=== PATIENT | female | born 1930 | race Caucasian/White ===

== ENCOUNTER 2018-05-20 02:05 | Observation (INO) ==
--- NOTE | 2018-05-20 02:23 | Emergency Department Note ---
ED Disposition Clinical Impression: Atrial fibrillation with rapid ventricular response Disposition: Admitted As Inpatient Condition on Discharge: Good Referrals: Tye Loomis MD [Primary Care Provider] - - Critical Care Critical Care Time: No Attestation: On , the high probability of a clinically significant, sudden or life threatening deterioration of the following system(s) required my full and direct attention, intervention and personal management. The time I documented below is in addition to time spent performing reported procedures but includes the following listed in this critical care notation. Medical Decision Making - Medical Records Medical records reviewed: Yes: I reviewed the patient's medical records. - Kulwinder Inquiry Pt receiving controlled substance: No Vital Signs: 05/20/18 02:06 05/20/18 02:31 05/20/18 02:52 Temperature 98.5 F Temperature Source Oral Pulse Rate [Right Brachial] 148 H 125 H 105 H Respiratory Rate 15 Blood Pressure [Right Arm] 148/88 H 125/64 126/71 Blood Pressure Mean [Right Arm] 108 84 89 02 Sat by Pulse Oximetry 98 98 98 Oxygen Delivery Method Room Air - Lab Data Lab results reviewed: Yes: I reviewed the patient's lab results. Lab Results 05/20/18 02:15: WBC 4.9, RBC 4.26, Hgb 13.2, Hct 39.6, MCV 92.8, MCH 31.0, MCHC 33.4, RDW 14.7, Plt Count 172, MPV 8.0, Neut % (Auto) 49.8, Lymph % (Auto) 38.2, [place] % (Auto) 8.4, Eos % (Auto) 2.6, Baso % (Auto) 1.1, Neut # (Auto) 2.5, Lymph # (Auto) 1.9, [place] # (Auto) 0.4, Eos # (Auto) 0.1, Baso # (Auto) 0.1 05/20/18 02:15: Sodium 136, Potassium 3.5, Chloride 100, Carbon Dioxide 26, Anion Gap 13.5, BUN 13, Creatinine 0.80, Estimated Creat Clear 40, Estimated GFR 68, Est GFR ( Amer) 82, Glucose 101, Calcium 9.6, Troponin I < 0.02 05/20/18 02:15: TSH 0.21 L D, Thyroxine (T4) 13.7 H Result diagrams: 05/20/18 02:15 03/04/19 02:15 Orders (Tests/Meds): ED MEDICATIONS Generic Name Dose Route Start Last Admin Trade Name Freq PRN Reason Stop Dose Admin Diltiazem HCl 125 mg 05/20/18 02:30 05/20/18 02:35 Cardizem 125mg/25ml Vial IV 06/19/18 02:29 Not Given DIRECTED PAWAN Protocol Sodium Chloride 1,000 mls @ 999 mls/hr 05/20/18 02:30 05/20/18 02:31 Sod Chlor 0.9% 1000ml Bag IV 05/20/18 03:30 999 mls/hr .Q1H1M PAWAN Administration Diltiazem HCl 100 mg/ Sodium 100 mls @ 5 mls/hr 05/20/18 02:39 05/20/18 02:32 Chloride IV 06/19/18 02:38 5 mls/hr .Q20H PAWAN Administration Protocol Sodium Chloride 10 ml 05/20/18 02:16 Saline Flush 10ml Syringe IV 06/19/18 02:15 NEEDED PRN Maintain IV Site Discontinued Medications Generic Name Dose Route Start Last Admin Trade Name Freq PRN Reason Stop Dose Admin Aspirin 324 mg 05/20/18 02:17 05/20/18 02:30 Aspirin 81mg Chewable Tablet PO 05/20/18 02:18 324 mg ONCE ONE Administration Diltiazem HCl 10 mg 05/20/18 02:23 05/20/18 02:30 Cardizem 25mg/5ml Vial IV 05/20/18 02:24 10 mg ONCE ONE Administration ORDERS Category Date Time Status XR chest portable Stat Exams 05/20/18 02:41 Taken ECG Request by /Nse Stat Y 05/20/18 02:16 Ordered - Radiology Data #1 Image(s): Chest Image Reviewed: Yes I reviewed the patient's radiology image Preliminary Findings: Abnormal (hiatial hernia ) - ECG Data Tracing #1 Arrhythmias present: afib Ischemic changes: non-specific ST-T wave changes ECG compared to prior tracings: this ECG reveals significant changes (last ekg sb) - Physician Consults Physician Consulted: david Reason -: Admission Arrhythmia/Palpitations HPI - General Chief Complaint: Arrhythmia/Palpitations Stated Complaint: fast heart rate Time Seen by Provider: 05/20/18 02:10 Mode of Arrival: Wheelchair Source of Information: Patient, Relative, Medical Record Limitations: No Limitations - History of Present Illness HPI narrative: awoke with af ib with fast hr with hx of a fib was to have surg at own today complaint: rapid heart beat Onset (ago): hour(s) Duration: constant Severity: moderate Context: occurred during rest Arrhythmia history: atrial fibrillation, on anti-coagulants Associated symptoms: denies other symptoms - Related Data Home Medications Medication Instructions Recorded Confirmed Alendronate Sodium [Fosamax 70mg 70 mg PO WEEKLY 04/01/18 05/20/18 Tablet] Apixaban [Eliquis] 5 mg PO BID 04/01/18 05/20/18 Atorvastatin Calcium [Atorvastatin 40 mg PO DAILY 04/01/18 05/20/18 40mg Tab] Hydrocodone/Acetaminophen 1 each PO BID 04/01/18 05/20/18 [Hydrocodon-Acetaminoph 7.5-325] Levothyroxine Sodium 125 mcg PO DAILY 04/01/18 05/20/18 [Levothyroxine 125mcg (0.125mg) Tab] Tolterodine Tartrate [Detrol LA] 2 mg PO DAILY 04/01/18 05/20/18 Allergies Allergy/AdvReac Type Severity Reaction Status Date / Time sulfamethoxazole Allergy Intermediate I-RASH Verified 08/19/17 18:22 [SULFAMETHOXAZOLE] dolasetron [DOLASETRON] Allergy Unknown HIGH BP Verified 08/19/17 18:22 trimethoprim [TRIMETHOPRIM] Allergy Unknown I-RASH Verified 08/19/17 18:22 [facility] History - Hepatitis A Screen Drug use history?: No High risk sexual behaviors?: No History of sexually transmitted infection?: No Currently employed?: No Childcare worker?: No Do you have indoor plumbing?: Yes Do you have electricity?: Yes Attestation statement:: This patient has been screened for Hepatitis A risk factors. I have reviewed the patient's past medical history: Yes Medical History: Reports:: Cancer (left breast lumpectomy), Depression, Gastroesophageal Reflux Disease(GERD), Hyperlipidemia, Hypertension Denies:: Diabetes Mellitus Type 1, Diabetes Mellitus Type 2, MRSA, Seizures Laterality Cases: Bilateral: Total Knee Replacement Other Surgeries: Yes: Cholecystectomy Amputation: No Comment: Elbow, left sentinel node bx - Social History Alcohol Intake: never Occupational Status: retired, disabled Housing: house - Psychiatric History Expresses thoughts of harming self/others: None Suicide Plan Description: No Plan Pschychiatric History:: Reports:: Depression ROS Obtained: Yes All systems reviewed & no additional complaints - Constitutional Constitutional: Denies fever(s) - Eyes Eyes: Denies change in vision - ENT Ears, Nose, Mouth, and Throat: Denies headache(s) - Cardiovascular Cardiovascular: Denies chest pain, Denies dyspnea, Reports rapid heart rate - Respiratory Respiratory: No cough - Gastrointestinal Gastrointestingal: Denies: diarrhea - Genitourinary Female Genitourinary: Denies hematuria - Musculoskeletal Musculoskeletal: Denies joint pain - Integumentary/Breasts Skin/Breast: Denies rash - Neurologic Neurologic: Denies seizure-like activity Physical Exam - General General appearance: in no apparent distress - Head Head exam: normocephalic - Eye Eye exam: Present: PERRL, EOMI. Absent: scleral icterus - ENT ENT exam: Present: mucous membranes dry - Neck Neck exam: Present: trachea midline - Respiratory Respiratory exam: Present: normal lung sounds bilaterally. Absent: respiratory distress - Cardiovascular Cardiovascular exam: Present: irregular rhythm, systolic murmur, +S4 - Abdominal Exam Abdominal exam: Present: soft - Extremities Exam Extremities exam: Absent: calf tenderness - Neurological Exam Neurological exam: Present: alert, oriented X3, CN II-XII intact - Psychiatric Psychiatric exam: Present: normal affect - Skin Skin exam: Absent: rash
[2018-05-20 02:26] LABS: Basophils # 0.1 K/mm3 (0-0.2); Basophils % 1.1 % (0.1-2.0); Eosinophils # 0.1 K/mm3 (0.0-0.4); Eosinophils % 2.6 % (0.1-12.0); Hematocrit 39.6 % (37.0-47.0); Hemoglobin 13.2 g/dL (12.2-16.2); Lymphocytes # 1.9 K/mm3 (0.7-4.5); Lymphocytes % 38.2 % (10-50); Mean Corpuscular HGB Conc 33.4 g/dL (31.8-35.4); Mean Corpuscular Volume 92.8 fl (81-99); Monocytes # 0.4 K/mm3 (0.1-1.0); Monocytes % 8.4 % (1.7-9.3); Neutrophils # 2.5 K/mm3 (1.8-7.8); Neutrophils % 49.8 % (37.0-80.0); Platelet Count 172 K/mm3 (142-424); Red Blood Count 4.26 M/mm3 (4.20-5.40); Red Cell Distribution Width 14.7 % (11.5-17.5); White Blood Count 4.9 K/mm3 (4.8-10.8)
[2018-05-20 02:42] LABS: Anion Gap 13.5 mEq/L (5-15); Blood Urea Nitrogen 13 mg/dL (7-18); Calcium 9.6 mg/dL (8.5-10.1); Carbon Dioxide 26 mmol/L (21.0-32.0); Chloride 100 mmol/L (98-107); Glucose 101 mg/dL (74-106); Potassium 3.5 mmoL/L (3.5-5.1); Sodium 136 mmol/L (136-145)
[2018-05-20 02:58] LABS: Thyroid Stimulating Hormone 0.21 uIU/ml (0.358-3.740)
--- NOTE | 2018-05-20 07:24 | Pharmacy Consult Notes ---
[facility] Pharmacy VTE Monitoring - Patient Demographics Admission date: 05/20/18 Report Date: 05/20/18 Time: 07:24 Allergies/Adverse Reactions: Patient Allergies sulfamethoxazole [SULFAMETHOXAZOLE] Allergy (Intermediate, Verified 08/19/17 18:22) I-RASH dolasetron [DOLASETRON] Allergy (Unknown, Verified 08/19/17 18:22) HIGH BP trimethoprim [TRIMETHOPRIM] Allergy (Unknown, Verified 08/19/17 18:22) I-RASH Height: 1.63 m Weight: 62.171 kg Patient Problems: Current Active Problems Atrial fibrillation with rapid ventricular response (Acute) - VTE Risk Labs: VTE Related Lab Results Hgb 13.2 g/dL (12.2-16.2) 05/20/18 02:15 Hct 39.6 % (37.0-47.0) 05/20/18 02:15 Plt Count 172 K/mm3 (142-424) 05/20/18 02:15 BUN 13 mg/dL (7-18) 05/20/18 02:15 Creatinine 0.80 mg/dL (0.55-1.02) 05/20/18 02:15 Estimated Creat Clear 40 mL/min (50-200) 05/20/18 02:15 VTE Score: 4 VTE Risk Level: Low Risk - Prophylaxis VTE Prophylaxis Ordered?: Yes Types of VTE Prophylaxis: TEDS Knee High Location of Applied Device: Bilateral Lower Extremeties - VTE Diagnosis Confirmed Treatment or plan recommended: Continue Current Treatment
--- NOTE | 2018-05-20 09:07 | History & Physical Report ---
*Admission Date: 05/20/18 <Rosalia Hernandez 05/20/18 09:34> *Chief complaint: Atrial fibrillation <Rosalia Hernandez 05/20/18 09:34> *History of present illness: Ms. Dyer is an 87-year-old female with a history of atrial fibrillation, esophageal reflux, breast cancer, mild cognitive impairment, hypothyroidism, heart murmur, glaucoma, and postoperative pulmonary embolism who was brought into [facility] emergency room by her daughter, Linda, for evaluation. The patient states that she was to have hiatal hernia surgery today and she was preparing for this yesterday by changing her bed linens last evening. She finally went to bed about 1 AM and was unable to go to sleep due to a funny feeling. She figured out that her heart was running away and called her daughter who brought her to the emergency room. She denies having any chest pain and shortness of breath. She denies any other upper respiratory signs and symptoms and was not nauseated. In the emergency room she was found to be in atrial fibrillation with a rapid ventricular response. She was started on a Cardizem drip and admitted. This a.m. she is sitting up in the bed eating her breakfast and appears quite comfortable. She has had little sleep and arrived in her room about 4 AM. She denies chest pain and shortness of breath. <Rosalia Hernandez 05/20/18 09:34> [facility] History Medical History: Reports:: Arrhythmia, Atrial Fibrillation, Cancer (left breast lumpectomy), Depression, Gastroesophageal Reflux Disease(GERD), Hyperlipidemia, Hypertension, Pulmonary Embolism Denies:: Diabetes Mellitus Type 1, Diabetes Mellitus Type 2, MRSA, Seizures <Rosalia Hernandez 05/20/18 09:34> *Have you ever received a pneumonia vaccine?: No <Rosalia Hernandez 05/20/18 09:34> *Have you received a flu vaccine this season?: Yes <Rosalia Hernandez 05/20/18 09:34> Other Medical History: Reports: Chemotherapy, Glaucoma, Hypothyroidism <Rosalia Hernandez 05/20/18 09:34> Laterality Cases: Left: Breast Biopsy, Lumpectomy, Right: Arthroscopy Shoulder, Bilateral: Total Knee Replacement <Rosalia Hernandez - 03/04/19 09:34> Other Surgeries: Yes: Cholecystectomy <Rosalia Hernandez 05/20/18 09:34> Amputation: No <Rosalia Hernandez 05/20/18 09:34> Comment: Rectal fissure repair; left breast lumpectomy; left foot surgery for hammertoe x4; <Rosalia Hernandez 05/20/18 09:34> - *Social History Educational Level: Completed College <Rosalia Hernandez 05/20/18 09:34> Smoking Status: Never smoker <Rosalia Hernandez 05/20/18 09:34> Alcohol Intake: current <Rosalia Hernandez 05/20/18 09:34> Alcohol Intake Frequency:: a few times a month <Rosalia Hernandez 05/20/18 09:34> *Occupational Status:: retired, disabled <Rosalia Hernandez 05/20/18 09:34> Housing: house <Rosalia Hernandez 05/20/18 09:34> Household Members: none <Rosalia Hernandez 05/20/18 09:34> *Travel in the last 8 weeks: None <Rosalia Hernandez 05/20/18 09:34> - Psychiatric History Expresses thoughts of harming self/others: None <Rosalia Hernandez 05/20/18 09:34> Suicide Plan Description: No Plan <Rosalia Hernandez 05/20/18 09:34> Pschychiatric History:: Reports:: Depression <Rosalia Hernandez 05/20/18 09:34> Family Hx:: Cancer, Coronary Artery Disease, Heart Attack, Hyperlipidemia, Thyroid Disorder <Rosalia Hernandez 05/20/18 09:34> Review of Systems - Constitutional Denies body ache(s), Denies chills, Denies fever(s), Denies headache(s) <Rosalia Hernandez 05/20/18 09:34> - Eyes Denies change in vision <Rosalia Hernandez 05/20/18 09:34> - ENT Denies ear pain, Denies sore throat <Rosalia Hernandez 05/20/18 09:34> - *Cardiovascular Reports irregular heart rhythm, Denies chest pain, Denies shortness of breath, Denies leg swelling <Rosalia Hernandez 05/20/18 09:34> - *Respiratory Denies chest congestion, Denies cough, Denies shortness of breath <HernandezRosalia - 05/20/18 09:34> - *Gastrointestinal Reports heartburn, Denies abdominal pain, Denies change in stools, Denies constipation, Denies nausea, Denies vomiting <HernandezRosalia 05/20/18 09:34> - *Genitourinary Denies difficulty urinating, Denies urinary incontinence <HernandezRosalia - 05/20/18 09:34> - *Musculoskeletal Comments: Is supposed to use a cane or walker with ambulation. She has had falls in the past. <HernandezRosalia Terrance 05/20/18 09:34> - *Neurologic Denies behavioral changes, Denies dizziness, Denies headache(s), Denies seizure- like activity <Rosalia Hernandez Terrance 05/20/18 09:34> Meds Home Medications Medication Instructions Recorded Confirmed Type Alendronate Sodium [Fosamax 70mg 70 mg PO WEEKLY 04/01/18 05/20/18 History Tablet] Atorvastatin Calcium [Atorvastatin 40 mg PO HS 04/01/18 05/20/18 History 40mg Tab] Hydrocodone/Acetaminophen 1 each PO QIDP PRN 04/01/18 05/20/18 History [Hydrocodon-Acetaminoph 7.5-325] Levothyroxine Sodium 125 mcg PO DAILY 04/01/18 05/20/18 History [Levothyroxine 125mcg (0.125mg) Tab] Tolterodine Tartrate [Detrol LA] 2 mg PO DAILY 04/01/18 05/20/18 History Apixaban [Eliquis] 2.5 mg PO BID 05/20/18 05/20/18 History Multivitamin [One Daily] 1 each PO DAILY 05/20/18 05/20/18 History Omeprazole [Omeprazole 20mg 20 mg PO DAILY 05/20/18 05/20/18 History Capsule] Sertraline HCl [Zoloft] 50 mg PO DAILY 05/20/18 05/20/18 History <Tye Loomis - 05/20/18 17:43> Allergies Allergy/AdvReac Type Severity Reaction Status Date / Time sulfamethoxazole Allergy Intermediate I-RASH Verified 08/19/17 18:22 [SULFAMETHOXAZOLE] dolasetron [DOLASETRON] Allergy Unknown HIGH BP Verified 08/19/17 18:22 trimethoprim [TRIMETHOPRIM] Allergy Unknown I-RASH Verified 08/19/17 18:22 <EbonieTye Tawanda - 05/20/18 17:43> Exam Vital signs and Labs for Last 24 Hours: Temp Pulse Resp BP Pulse Ox 98.2 F 94 H 17 105/60 L 96 05/20/18 16:00 05/20/18 16:00 05/20/18 16:00 05/20/18 16:00 05/20/18 14:00 Laboratory Results - last 24 hr 05/20/18 02:15: WBC 4.9, RBC 4.26, Hgb 13.2, Hct 39.6, MCV 92.8, MCH 31.0, MCHC 33.4, RDW 14.7, Plt Count 172, MPV 8.0, Neut % (Auto) 49.8, Lymph % (Auto) 38.2, [place] % (Auto) 8.4, Eos % (Auto) 2.6, Baso % (Auto) 1.1, Neut # (Auto) 2.5, Lymph # (Auto) 1.9, [place] # (Auto) 0.4, Eos # (Auto) 0.1, Baso # (Auto) 0.1 05/20/18 02:15: Sodium 136, Potassium 3.5, Chloride 100, Carbon Dioxide 26, Anion Gap 13.5, BUN 13, Creatinine 0.80, Estimated Creat Clear 40, Estimated GFR 68, Est GFR ( Amer) 82, Glucose 101, Calcium 9.6, Troponin I < 0.02 05/20/18 02:15: TSH 0.21 L D, Thyroxine (T4) 13.7 H 05/20/18 05:21: Magnesium 1.9, Troponin I < 0.02 05/20/18 10:00: Troponin I < 0.02 <Tye Loomis - 05/20/18 17:43> Temp Pulse Resp BP Pulse Ox 97.9 F 120 H 20 125/55 L 98 05/20/18 07:52 05/20/18 06:00 05/20/18 04:00 05/20/18 06:00 05/20/18 06:00 Laboratory Results - last 24 hr 05/20/18 02:15: WBC 4.9, RBC 4.26, Hgb 13.2, Hct 39.6, MCV 92.8, MCH 31.0, MCHC 33.4, RDW 14.7, Plt Count 172, MPV 8.0, Neut % (Auto) 49.8, Lymph % (Auto) 38.2, [place] % (Auto) 8.4, Eos % (Auto) 2.6, Baso % (Auto) 1.1, Neut # (Auto) 2.5, Lymph # (Auto) 1.9, [place] # (Auto) 0.4, Eos # (Auto) 0.1, Baso # (Auto) 0.1 05/20/18 02:15: Sodium 136, Potassium 3.5, Chloride 100, Carbon Dioxide 26, Anion Gap 13.5, BUN 13, Creatinine 0.80, Estimated Creat Clear 40, Estimated GFR 68, Est GFR ( Amer) 82, Glucose 101, Calcium 9.6, Troponin I < 0.02 05/20/18 02:15: TSH 0.21 L D, Thyroxine (T4) 13.7 H 05/20/18 05:21: Magnesium 1.9, Troponin I < 0.02 <Rosalia Hernandez - 05/20/18 09:34> I & O for Last 24 hours: Intake & Output 05/18/18 05/19/18 05/20/18 05/21/18 11:59 11:59 11:59 11:59 Intake Total 1079 / 1079 240 / 240 Output Total 250 / 250 550 / 550 Balance 829 / 829 -310 / -310 Weight 137 lb 1 oz 137 lb <Tye Loomis - 05/20/18 17:43> Intake & Output 05/17/18 05/18/18 05/19/18 05/20/18 11:59 11:59 11:59 11:59 Intake Total 1040 / 1040 Output Total 250 / 250 Balance 790 / 790 Weight 137 lb 1 oz <Rosalia Hernandez - 05/20/18 09:34> Radiology Reports for the Last 24 Hours: 05/20/2018 chest x-ray IMPRESSION: Cardiomegaly with hiatal hernia, no change with no acute finding. <[facility] 05/20/18 09:34> - Constitutional no acute distress <Marilynn Hernandezhy 05/20/18 09:34> Comments: Sitting up in the bed eating her breakfast. Daughter is at bedside <Marilynn Hernandezhy 05/20/18 09:34> - *Routine HEENT Exam Head: Present: normocephalic, atraumatic <Marilynn Hernandezhy 05/20/18 09:34> Eye: Present: PERRL. Absent: conjunctival icterus, scleral injection <Marilynn Hernandezhy 05/20/18 09:34> ENT: Present: mucous membranes moist, oropharynx clear <Marilynn Hernandezhy 05/20/18 09:34> - *Routine Neck Exam Present: supple, full ROM. Absent: carotid bruit, thyromegaly, tenderness <Hernandez,Rosalia 05/20/18 09:34> - *Routine Respiratory Exam Present: CTA bilaterally (Anteriorly and posteriorly) <Marilynn Hernandezhy 05/20/18 09:34> - *Routine Cardiovascular Exam Present: irregular rhythm (Monitor showing atrial fib with a controlled ventricular response) <Hernandez,Rosalia 05/20/18 09:34> - *Routine Abdominal Exam Present: soft, normoactive bowel sounds. Absent: tenderness, distended <MaryRosalia 05/20/18 09:34> - *Routine Extremities Exam Absent: edema, calf tenderness <Hernandez,Rosalia 05/20/18 09:34> - *Routine Neurological Exam Present: alert, oriented X3 <Hernandez,Rosalia 05/20/18 09:34> Assessment and Plan (1) Atrial fibrillation with rapid ventricular response Current visit: Yes Status: Acute Category: Medical Code(s): I48.91 - Unspecified atrial fibrillation (2) Low TSH level Current visit: Yes Status: Acute Category: Medical Code(s): R79.89 - Other specified abnormal findings of blood chemistry (3) Hypothyroidism Current visit: Yes Status: Chronic Category: Medical Code(s): E03.9 - Hypothyroidism, unspecified (4) Paroxysmal atrial fibrillation Current visit: Yes Status: Chronic Category: Medical Code(s): I48.0 - Paroxysmal atrial fibrillation (5) Esophageal reflux Current visit: Yes Status: Chronic Category: Medical Code(s): K21.9 - Gastro-esophageal reflux disease without esophagitis (6) History of breast cancer Current visit: Yes Status: Chronic Category: Medical Code(s): Z85.3 - Personal history of malignant neoplasm of breast <Tye Loomis - 05/20/18 17:43> (1) Atrial fibrillation with rapid ventricular response Current visit: Yes Status: Acute Category: Medical Code(s): I48.91 - Unspecified atrial fibrillation (2) Low TSH level Current visit: Yes Status: Acute Category: Medical Code(s): R79.89 - Other specified abnormal findings of blood chemistry (3) Hypothyroidism Current visit: Yes Status: Chronic Category: Medical Code(s): E03.9 - Hypothyroidism, unspecified (4) Paroxysmal atrial fibrillation Current visit: Yes Status: Chronic Category: Medical Code(s): I48.0 - Paroxysmal atrial fibrillation (5) Esophageal reflux Current visit: Yes Status: Chronic Category: Medical Code(s): K21.9 - Gastro-esophageal reflux disease without esophagitis (6) History of breast cancer Current visit: Yes Status: Chronic Category: Medical Code(s): Z85.3 - Personal history of malignant neoplasm of breast <Rosalia Hernandez - 05/20/18 09:04> - Assessment and plan all Dx Assessment and Plan for all problems:: Further to above HPI, she has a history of paroxysmal atrial fibrillation and has been followed by Dr. Guerra and Dr. Mireles. She was maintained on amiodarone until last fall when this was discontinued because of complaints of dizziness. At that time she was in normal sinus rhythm and had not had a bout of atrial fibrillation for several months. She has also been maintained on Eliquis for anticoagulation although the dose was recently decreased to 2.5 mg twice daily. ER record is reviewed. Laboratory data is remarkable for an elevated T4 and depressed TSH. As noted she was started on IV Cardizem and at the present time her rate is controlled in the mid to upper the upper 90s. She is still in A. fib. She is comfortable. At no time has she had any chest pain. She will be started on p.o. Cardizem and weaned off the drip and observed for the next 24 hours. If she remains rate controlled, she may be discharged to follow-up with her stiff straw hat washer. <Tye Loomis - 05/20/18 17:43> Start Cardizem p.o. and wean from drip. Will restart Eliquis 2.5 mg twice daily (dosage was recently decreased by cognos report developer).Will hold levothyroxine <Rosalia Hernandez - 05/20/18 09:34>
--- NOTE | 2018-05-20 19:11 | Cardiology Report ---
PROCEDURE: 2-D M-mode and color Doppler study INDICATIONS FOR THE TEST: Chest pain COPD Heart Murmur Tobacco Smoking Palpitations+ Fatigue Syncope Edema Hypertension+Diabetes Mellitus Rheumatic Fever SOB FARMER Obesity Hyperlipidemia+ Family History HD Additional History AFIB, L LUMPECTOMY, BREAST CA, GERD PATIENT INFORMATION HEIGHT: 64 WEIGHT:140 GENDER: Female B/P:126/71 2-D/M-MODE INTERPRETATION: 2-D MEASUREMENTS OBSERVED VALUES IN CMS Right Ventricular Dimension (RVDd) 1.7 Interventricular Septum (Thickness)(IVsd) 1.2 Left Ventricular Internal Dimensions(LVIDd) 5.1 Left Ventricular Posterior Wall (Thickness)(LVPWd) 0.6 Aortic Root 3.3 Aortic Cusp Separation 2.0 Left Atrial Dimensions (LAD) 3.9 2D 1. Left atrium is moderately enlarged, left ventricle is normal size, mild concentric left ventricular hypertrophy, visually estimated ejection of 55% with no regional wall motion abnormality. 2. The right atrium and right ventricle are mildly enlarged with normal contractility. 3. The aortic valve is thickened and calcified, leaflet continue to display mobility. 4. The mitral and tricuspid valve leaflets are minimally thickened. 5. The pulmonic valve is poorly visualized. 6. No significant pericardial effusion noted. DOPPLER INTERROGATION: Doppler interrogation of the aortic, mitral and tricuspid valvular presence of moderate aortic, mild mitral and moderate tricuspid regurgitation, tricuspid regurgitation inadequate for calculation of the right ventricle systolic pressure, diastolic parameters are inconclusive CONCLUSION: 1. Moderately enlarged, normal left ventricular size, mild concentric left ventricular hypertrophy, visually estimated ejection fraction of 55% with no regional wall motion abnormality. Diastolic parameters are inconclusive 2. Mildly enlarged right ventricle are normal contractility. 3. Moderate aortic, mild mitral and moderate tricuspid regurgitation 4. No significant pericardial effusion noted.
--- NOTE | 2018-05-21 08:34 | Progress Note ---
<Rosalia Hernandez - Last Filed: 05/21/18 08:31> Internal Medicine - PN: Subj *Date: 05/21/18 *Time: 08:31 Interval history: Patient is doing well this morning. She denies chest pain and shortness of breath. She has been eating without problems. She ambulates to the bathroom without problems. Patient converted to sinus rhythm during the night. Exam Vital signs and Labs for Last 24 Hours: Temp Pulse Resp BP Pulse Ox 97.6 F 57 L 16 124/51 L 93 L 05/21/18 04:00 05/21/18 06:00 05/21/18 06:00 05/21/18 06:00 05/21/18 06:00 Laboratory Results - last 24 hr 05/20/18 10:00: Troponin I < 0.02 I & O for Last 24 hours: Intake & Output 05/18/18 05/19/18 05/20/18 05/21/18 11:59 11:59 11:59 11:59 Intake Total 1079 / 1079 1495 / 1495 Output Total 250 / 250 550 / 550 Balance 829 / 829 945 / 945 Weight 137 lb 1 oz 146 lb 3 oz - Constitutional no acute distress Comments: Conversant - *Routine Respiratory Exam Present: CTA bilaterally (Anteriorly and posteriorly) - *Routine Cardiovascular Exam Present: RRR Comments: Monitor showing normal sinus rhythm with occasional PAC - *Routine Abdominal Exam Present: soft, normoactive bowel sounds. Absent: tenderness - *Routine Extremities Exam Absent: edema, calf tenderness - *Routine Neurological Exam Present: alert, oriented X3 Assessment and Plan (1) Atrial fibrillation with rapid ventricular response Status: Acute Category: Medical Code(s): I48.91 - Unspecified atrial fibrillation (2) Low TSH level Status: Acute Category: Medical Code(s): R79.89 - Other specified abnormal findings of blood chemistry (3) Hypothyroidism Status: Chronic Category: Medical Code(s): E03.9 - Hypothyroidism, unspecified (4) Paroxysmal atrial fibrillation Status: Chronic Category: Medical Code(s): I48.0 - Paroxysmal atrial fibrillation (5) Esophageal reflux Status: Chronic Category: Medical Code(s): K21.9 - Gastro-esophageal reflux disease without esophagitis (6) History of breast cancer Status: Chronic Category: Medical Code(s): Z85.3 - Personal history of malignant neoplasm of breast - Assessment and plan all Dx Assessment and Plan for all problems:: Patient will be discharged today on p.o. Cardizem. She will be restarted back on levothyroxine dose. She will have follow-up with cardiology as well as with Dr. Loomis. See discharge orders <Tye Loomis - Last Filed: 05/21/18 13:20> Exam Vital signs and Labs for Last 24 Hours: Temp Pulse Resp BP Pulse Ox 97.6 F 68 18 161/78 H 98 05/21/18 04:00 05/21/18 08:00 05/21/18 08:00 05/21/18 08:00 05/21/18 08:15 I & O for Last 24 hours: Intake & Output 05/19/18 05/20/18 05/21/18 05/22/18 11:59 11:59 11:59 11:59 Intake Total 1079 / 1079 1495 / 1495 Output Total 250 / 250 550 / 550 Balance 829 / 829 945 / 945 Weight 137 lb 1 oz 146 lb 3 oz Assessment and Plan (1) Atrial fibrillation with rapid ventricular response Status: Acute Category: Medical Code(s): I48.91 - Unspecified atrial fibrillation (2) Low TSH level Status: Acute Category: Medical Code(s): R79.89 - Other specified abnormal findings of blood chemistry (3) Hypothyroidism Status: Chronic Category: Medical Code(s): E03.9 - Hypothyroidism, unspecified (4) Paroxysmal atrial fibrillation Status: Chronic Category: Medical Code(s): I48.0 - Paroxysmal atrial fibrillation (5) Esophageal reflux Status: Chronic Category: Medical Code(s): K21.9 - Gastro-esophageal reflux disease without esophagitis (6) History of breast cancer Status: Chronic Category: Medical Code(s): Z85.3 - Personal history of malignant neoplasm of breast - Assessment and plan all Dx Assessment and Plan for all problems:: Patient seen and examined this AM. Concur with above. She is stable for discharge on Cardizem and lowered dose of levothyroxine. Will f/u in office is 1 week and arrange outpt cardiology f/u. She requests to transfer care to Dr. Min.
--- NOTE | 2018-05-22 21:27 | Discharge Summary ---
General - General Admission date:: 05/20/18 Discharge date: 05/21/18 HPI HPI: Ms. Dyer is an 87-year-old female with a history of atrial fibrillation, esophageal reflux, breast cancer, mild cognitive impairment, hypothyroidism, heart murmur, glaucoma, and postoperative pulmonary embolism who was brought into [facility] emergency room by her daughter, Linda, for evaluation. The patient states that she was to have hiatal hernia surgery today and she was preparing for this yesterday by changing her bed linens last evening. She finally went to bed about 1 AM and was unable to go to sleep due to a funny feeling. She figured out that her heart was running away and called her daughter who brought her to the emergency room. She denies having any chest pain and shortness of breath. She denies any other upper respiratory signs and symptoms and was not nauseated. In the emergency room she was found to be in atrial fibrillation with a rapid ventricular response. She was started on a Cardizem drip and admitted. This a.m. she is sitting up in the bed eating her breakfast and appears quite comfortable. She has had little sleep and arrived in her room about 4 AM. She denies chest pain and shortness of breath. Hospital Course Hospital Course: Patient's chest x-ray showed cardiomegaly with a hiatal hernia but nothing acute. Her TSH was low and her T4 was elevated, therefore her levothyroxine dose was held. The patient does have a history of paroxysmal atrial fib and is followed by Dr. Guerra and Dr. Hughes. She was maintained on amiodarone until last fall when this was discontinued because of complaints of dizziness. She had also been maintained on Eliquis for anticoagulation although the dose was recently decreased to 2.5 mg twice daily. The patient was started on IV Car dizem in the ER and her rate was controlled in the upper 90s. She was weaned off of the Cardizem drip and started on p.o. Cardizem. She was also started back on her Eliquis 2.5 mg twice daily. The patient did well on p.o. medication and was able to eat without problems and ambulate without problems. She did convert to sinus rhythm and was stable to be discharged home on p.o. Cardizem. She will have a follow-up with cardiology as well as Dr. Loomis. Her levothyroxine dose was decreased. Of note, she did have an echocardiogram which showed an ejection fraction of 55% with some mild left ventricular hypertrophy. Objective Vital signs: Temp Pulse Resp BP Pulse Ox 97.6 F 68 18 161/78 H 98 05/21/18 04:00 05/21/18 08:00 05/21/18 08:00 05/21/18 08:00 05/21/18 08:15 Narrative: - Constitutional no acute distress Comments: Sitting up in the bed eating her breakfast. Daughter is at bedside - *Routine HEENT Exam Head: Present: normocephalic, atraumatic Eye: Present: PERRL. Absent: conjunctival icterus, scleral injection ENT: Present: mucous membranes moist, oropharynx clear - *Routine Neck Exam Present: supple, full ROM. Absent: carotid bruit, thyromegaly, tenderness - *Routine Respiratory Exam Present: CTA bilaterally (Anteriorly and posteriorly) - *Routine Cardiovascular Exam Present: irregular rhythm (Monitor showing atrial fib with a controlled ventricular response) - *Routine Abdominal Exam Present: soft, normoactive bowel sounds. Absent: tenderness, distended - *Routine Extremities Exam Absent: edema, calf tenderness - *Routine Neurological Exam Present: alert, oriented X3 DS: Diagnosis - Discharge Diagnosis (1) Atrial fibrillation with rapid ventricular response Status: Acute (2) Low TSH level Status: Acute (3) Hypothyroidism Status: Chronic (4) Paroxysmal atrial fibrillation Status: Chronic (5) Esophageal reflux Status: Chronic (6) History of breast cancer Status: Chronic Discharge Plan - Patient Discharge Instructions ACTIVITY: Continue current activity DIET: continue same diet Additional Instructions: new dose of levothyroxine medication. start new heart medication monitor heart rate and bp follow up with md return/call md with any changes or worsening of symptoms Patient Instructions: DI for Atrial Fibrillation, DI for Hypothyroidism - Follow up Plan Follow up with: Tye Loomis MD [Primary Care Provider] - 1 week Kostas Min MD [Staff Physician] - (5-7 days) Disposition: Home, Self-Prison Medications: Home Medications Medication Instructions Recorded Confirmed Type Alendronate Sodium [Fosamax 70mg 70 mg PO WEEKLY 04/01/18 05/20/18 History Tablet] Atorvastatin Calcium [Atorvastatin 40 mg PO HS 04/01/18 05/20/18 History 40mg Tab] Hydrocodone/Acetaminophen 1 each PO QIDP PRN 04/01/18 05/20/18 History [Hydrocodone-Acetamin 7.5-325] Tolterodine Tartrate [Detrol LA] 2 mg PO DAILY 04/01/18 05/20/18 History Apixaban [Eliquis] 2.5 mg PO BID 05/20/18 05/20/18 History Multivitamin [One Daily] 1 each PO DAILY 05/20/18 05/20/18 History Omeprazole [Omeprazole 20mg 20 mg PO DAILY 05/20/18 05/20/18 History Capsule] Sertraline HCl [Zoloft] 50 mg PO DAILY 05/20/18 05/20/18 History Levothyroxine Sodium 112 mcg PO DAILY #30 tab 05/21/18 Rx [Levothyroxine 112mcg (0.112mg) Tab] dilTIAZem HCl [Cardizem] 30 mg PO Q8H #90 tab 05/21/18 Rx Prescriptions/Medication Reconciliation: New dilTIAZem HCl [Cardizem] 30 mg PO Q8H #90 tab Levothyroxine Sodium [Levothyroxine 112mcg (0.112mg) Tab] 112 mcg PO DAILY #30 tab Continue Tolterodine Tartrate [Detrol LA] 2 mg PO DAILY Alendronate Sodium [Fosamax 70mg Tablet] 70 mg PO WEEKLY Hydrocodone/Acetaminophen [Hydrocodone-Acetamin 7.5-325] 1 each PO QIDP PRN PRN Reason: PAIN Sertraline HCl [Zoloft] 50 mg PO DAILY Apixaban [Eliquis] 2.5 mg PO BID Omeprazole [Omeprazole 20mg Capsule] 20 mg PO DAILY Multivitamin [One Daily] 1 each PO DAILY Atorvastatin Calcium [Atorvastatin 40mg Tab] 40 mg PO HS Discontinued Levothyroxine Sodium [Levothyroxine 125mcg (0.125mg) Tab] 125 mcg PO DAILY
== END 2018-05-21 11:05 | disposition home or self-care (01) ==
LOC: ER 02:05 → 2ND 03:26 → INTOOBSV 03:52 → 2ND 03:53
PROVIDERS: ADMIT Family Medicine; ATTEND Family Medicine
DX: Z79.01 Long term (current) use of anticoagulants; Z79.899 Other long term (current) drug therapy; E03.9 Hypothyroidism, unspecified; Z82.49 Family history of ischemic heart disease and other diseases of the circulatory system; Z85.3 Personal history of malignant neoplasm of breast; Z86.711 Personal history of pulmonary embolism; I10 Essential (primary) hypertension; I48.0 Paroxysmal atrial fibrillation; E78.5 Hyperlipidemia, unspecified
CPT/HCPCS: 36415; 71010; 71045; 80048; 83735; 84436; 84443; 84484; 85025; 93005; 93306; 96365; 96367; 96375; 99284; G0378

== ENCOUNTER 2018-08-15 13:23 | Observation (INO) ==
--- NOTE | 2018-08-15 13:40 | Emergency Department Note ---
ED Disposition Clinical Impression: Atrial fibrillation with RVR Disposition: Admitted as Observation Condition on Discharge: Good Time of Disposition: 14:37 - Critical Care Critical Care Time: No Attestation: On , the high probability of a clinically significant, sudden or life threatening deterioration of the following system(s) required my full and direct attention, intervention and personal management. The time I documented below is in addition to time spent performing reported procedures but includes the following listed in this critical care notation. Medical Decision Making - Medical Records Medical records reviewed: Yes: I reviewed the patient's medical records. - Kulwinder Inquiry Pt receiving controlled substance: No Kulwinder was queried for this patient: No Vital Signs: 08/15/18 13:29 Temperature 98.0 F Temperature Source Oral Pulse Rate [Right Brachial] 148 H Respiratory Rate 17 Blood Pressure [Right Arm] 128/92 H Blood Pressure Mean [Right Arm] 104 Blood Pressure Source [Right Arm] Automatic Cuff Blood Pressure Position [Right Arm] Sitting 02 Sat by Pulse Oximetry 100 Oxygen Delivery Method Room Air - Lab Data Lab results reviewed: Yes: I reviewed the patient's lab results. Lab Results 08/15/18 13:38: WBC 5.1, RBC 4.55, Hgb 14.1, Hct 41.7, MCV 91.6, MCH 31.1, MCHC 33.9, RDW 13.2, Plt Count 238, MPV 7.6, Neut % (Auto) 66.9, Lymph % (Auto) 24.6, Wilbarger % (Auto) 6.3, Eos % (Auto) 1.4, Baso % (Auto) 0.8, Neut # (Auto) 3.4, Lymph # (Auto) 1.3, [place]ger # (Auto) 0.3, Eos # (Auto) 0.1, Baso # (Auto) 0.0 08/15/18 13:38: Magnesium 1.9, Troponin I < 0.02 08/15/18 13:38: Sodium 139, Potassium 3.4 L, Chloride 104, Carbon Dioxide 26, Anion Gap 12.4, BUN 12, Creatinine 0.77, Estimated Creat Clear 38, Estimated GFR 71, Est GFR ( Amer) 86, Glucose 159 H, Calcium 9.3, Total Bilirubin 0.6, AST 23, ALT 25, Alkaline Phosphatase 90, Total Protein 7.2, Albumin 3.6, Globulin 3.6 H, Albumin/Globulin Ratio 1.0 L Result diagrams: 08/15/18 13:38 08/15/18 13:38 Orders (Tests/Meds): ED MEDICATIONS Generic Name Dose Route Start Last Admin Trade Name Freq PRN Reason Stop Dose Admin Sodium Chloride 1,000 mls @ 999 mls/hr 08/15/18 13:45 08/15/18 13:44 Sod Chlor 0.9% 1000ml Bag IV 08/15/18 14:45 999 mls/hr .Q1H1M PAWAN Administration Discontinued Medications Generic Name Dose Route Start Last Admin Trade Name Freq PRN Reason Stop Dose Admin Diltiazem HCl 10 mg 08/15/18 13:32 08/15/18 13:38 Cardizem 100mg Adv IV 08/15/18 13:33 10 mg ONCE ONE Administration ORDERS Category Date Time Status EKG Request [ECG Request by /Chalo] Stat Y 08/15/18 13:34 Ordered Arrhythmia/Palpitations HPI - General Chief Complaint: Arrhythmia/Palpitations Stated Complaint: possibly afib Time Seen by Provider: 08/15/18 13:37 Source of Information: Patient Limitations: No Limitations - History of Present Illness MD complaint: "heart racing", "skipped beats", palpitations - Related Data Home Medications Medication Instructions Recorded Confirmed Atorvastatin Calcium [Atorvastatin 40 mg PO HS 04/01/18 05/30/18 40mg Tab] Hydrocodone/Acetaminophen 1 each PO QIDP PRN 04/01/18 05/30/18 [Hydrocodone-Acetamin 7.5-325] Tolterodine Tartrate [Detrol LA] 2 mg PO DAILY 04/01/18 05/30/18 Apixaban [Eliquis 2.5mg tab] 2.5 mg PO BID 05/20/18 05/30/18 Multivitamin [One Daily] 1 each PO DAILY 05/20/18 05/30/18 Omeprazole [Omeprazole 20mg 20 mg PO DAILY 05/20/18 05/30/18 Capsule] Sertraline HCl [Zoloft] 50 mg PO DAILY 05/20/18 05/30/18 diltiazem 30 mg tablet 30 mg PO TID tab 05/30/18 05/30/18 Previous Rx's Medication Instructions Recorded Levothyroxine Sodium 112 mcg PO DAILY #30 tab 05/21/18 [Levothyroxine 112mcg (0.112mg) Tab] Allergies Allergy/AdvReac Type Severity Reaction Status Date / Time sulfamethoxazole Allergy Intermediate I-RASH Verified 05/30/18 14:02 [SULFAMETHOXAZOLE] dolasetron [DOLASETRON] Allergy Unknown HIGH BP Verified 05/30/18 14:02 trimethoprim [TRIMETHOPRIM] Allergy Unknown I-RASH Verified 05/30/18 14:02 [facility] History - Hepatitis A Screen Attestation statement:: This patient has been screened for Hepatitis A risk factors. I have reviewed the patient's past medical history: Yes Medical History: Reports:: Arrhythmia, Atrial Fibrillation, Cancer, Depression, Gastroesophageal Reflux Disease(GERD), Hyperlipidemia, Hypertension, Palpita tions, Pulmonary Embolism Denies:: Diabetes Mellitus Type 1, Diabetes Mellitus Type 2, Internal Pac emaker, Lung Disease, MRSA, Seizures Other Medical History: Reports: Chemotherapy, Glaucoma, Hypothyroidism Laterality Cases: Left: Breast Biopsy, Lumpectomy, Right: Arthroscopy Shoulder Other Surgeries: Yes: Cholecystectomy. No: Pacemaker Amputation: No Comment: Rectal fissure repair; left breast lumpectomy; left foot surgery for hammertoe x4; - Social History Smoking Status: Never smoker Alcohol Intake: current Alcohol Intake Frequency:: a few times a month Substance Use Type: denies use Occupational Status: retired, disabled Housing: house Household Members: none - Psychiatric History Pschychiatric History:: Reports:: Depression Family Hx:: Cancer, Hyperlipidemia, Thyroid Disorder ROS Obtained: Yes All systems reviewed & no additional complaints - Constitutional Constitutional: Denies fever(s) - Eyes Eyes: Denies change in vision - Cardiovascular Cardiovascular: Denies chest pain, Denies chest pain at rest, Denies diaphoresis, Denies dyspnea, Reports palpitations, Reports rapid heart rate - Respiratory Respiratory: No dyspnea, No dyspnea on exertion - Gastrointestinal Gastrointestingal: Reports: system reviewed and no additional complaints, except as docu - Genitourinary Female Genitourinary: Denies dysuria, Denies flank pain - Musculoskeletal Musculoskeletal: Denies muscle weakness - Integumentary/Breasts Skin/Breast: Denies rash, Denies skin pain, Denies wounds - Neurologic Neurologic: Denies headache(s), Denies numbness, Denies seizure-like activity, Denies vertigo - Hematologic/Lymphatic Henatologic/Lymphatic: Denies easy bleeding, Denies easy bruising Physical Exam - General General appearance: alert, other (dementia features) - Eye Eye exam: Present: normal appearance, PERRL, EOMI - ENT ENT exam: Present: normal exam, normal oropharynx, mucous membranes moist, TM's normal bilaterally, normal external ear exam - Neck Neck exam: Present: normal inspection, full ROM, trachea midline. Absent: meningismus, lymphadenopathy - Chest Chest inspection: Present: normal inspection, symmetric chest wall rise. Absent: tenderness - Respiratory Respiratory exam: Present: normal lung sounds bilaterally. Absent: respiratory distress - Cardiovascular Cardiovascular exam: Present: tachycardia, irregular rhythm - Abdominal Exam Abdominal exam: Present: soft, normal bowel sounds. Absent: distention, tenderness, guarding - Extremities Exam Extremities exam: Present: normal inspection, full ROM, normal capillary refill. Absent: calf tenderness - Back Exam Back exam: Present: normal inspection. Absent: tenderness - Neurological Exam Neurological exam: Present: alert, oriented X3 - Psychiatric Psychiatric exam: Present: normal affect, normal mood - Skin Skin exam: Present: warm, dry, intact, normal color
[2018-08-15 13:46] LABS: Basophils % 0.8 % (0.1-2.0); Eosinophils # 0.1 K/mm3 (0.0-0.4); Eosinophils % 1.4 % (0.1-12.0); Hematocrit 41.7 % (37.0-47.0); Hemoglobin 14.1 g/dL (12.2-16.2); Lymphocytes # 1.3 K/mm3 (0.7-4.5); Lymphocytes % 24.6 % (10-50); Mean Corpuscular HGB Conc 33.9 g/dL (31.8-35.4); Mean Corpuscular Hemoglobin 31.1 pg (27.0-31.2); Mean Corpuscular Volume 91.6 fl (81-99); Mean Platelet Volume 7.6 fl (7.4-10.4); Monocytes # 0.3 K/mm3 (0.1-1.0); Monocytes % 6.3 % (1.7-9.3); Neutrophils # 3.4 K/mm3 (1.8-7.8); Neutrophils % 66.9 % (37.0-80.0); Platelet Count 238 K/mm3 (142-424); Red Blood Count 4.55 M/mm3 (4.20-5.40); Red Cell Distribution Width 13.2 % (11.5-17.5); White Blood Count 5.1 K/mm3 (4.8-10.8)
[2018-08-15 14:10] LABS: Albumin Level 3.6 gm/dL (3.4-5.0); Anion Gap 12.4 mEq/L (5-15); Bilirubin,Total 0.6 mg/dL (0.2-1.0); Calcium 9.3 mg/dL (8.5-10.1); Globulin 3.6 gm/dl (1.3-3.2); Potassium 3.4 mmoL/L (3.5-5.1); Total Protein,Serum 7.2 gm/dL (6.4-8.2)
--- NOTE | 2018-08-15 17:43 | History & Physical Report ---
*Admission Date: 08/15/18 <Princess Brock 08/15/18 17:46> *Chief complaint: fluttering in chest <Princess Brock 08/15/18 17:46> *History of present illness: Ms. Dyer is an 87-year-old female with a history of atrial fibrillation, GERD, breast cancer, history of PE after knee replacement, hypothyroidism, hyperlipidemia, and mild cognitive impairment who has been feeling poorly for the past few days. She states she has felt jittery for a few days. She decided this morning to go to the post office. When she got there she states she started feeling a fluttering type sensation in her chest and began to feel worse, therefore she presented to the emergency room for further evaluation. She denies any chest pain. In the ER she was found to be in atrial fibrillation with rapid ventricular response. She was started on a Cardizem drip and her heart rate has decreased significantly. She is feeling better at this time. She states that she is followed by Dr. Mireles in [place] (cardiology). <Princess Brock 08/15/18 17:46> [facility] History Medical History: Reports:: Arrhythmia, Atrial Fibrillation, Cancer, Depression, Gastroesophageal Reflux Disease(GERD), Hyperlipidemia, Hypertension, Palpitations, Pulmonary Embolism Denies:: Diabetes Mellitus Type 1, Diabetes Mellitus Type 2, Internal Pacemaker, Lung Disease, MRSA, Seizures <Princess Brock 08/15/18 17:46> *Have you ever received a pneumonia vaccine?: Yes <Princess Brock 08/15/18 17:46> *Have you received a flu vaccine this season?: Yes <Princess Brock 08/15/18 17:46> Other Medical History: Reports: Chemotherapy, Glaucoma, Hypothyroidism <Princess Brock 08/15/18 17:46> Laterality Cases: Left: Breast Biopsy, Lumpectomy, Right: Arthroscopy Shoulder, Bilateral: Total Knee Replacement <Princess Brock 08/15/18 17:46> Other Surgeries: Yes: Cholecystectomy, Dilation and Curettage, EGD, Other. No: Pacemaker <Princess Brock 08/15/18 17:46> Amputation: No <Princess Brock 08/15/18 17:46> - *Social History Educational Level: Completed College <DelmyPrincess 08/15/18 17:46> Smoking Status: Never smoker <DelmyPrincess 08/15/18 17:46> Alcohol Intake: never <DelmyPrincess 08/15/18 17:46> Alcohol Intake Frequency:: a few times a month <Pako Brocka 08/15/18 17:46> Substance Use Type: denies use <DelmyPrincess 08/15/18 17:46> *Occupational Status:: retired, disabled <DelmyPrincess 08/15/18 17:46> Housing: house <DelmyPrincess 08/15/18 17:46> Household Members: none <DelmyPrincess 08/15/18 17:46> *Travel in the last 8 weeks: None <DelmyPrincess 08/15/18 17:46> - Psychiatric History Expresses thoughts of harming self/others: None <DelmyPrincess 08/15/18 17:46> Suicide Plan Description: No Plan <DelmyPrincess 08/15/18 17:46> Pschychiatric History:: Reports:: Depression <DelmyPrincess 08/15/18 17:46> Family Hx:: Cancer, Hyperlipidemia, Thyroid Disorder <DelmyPrincess 08/15/18 17:46> Review of Systems - Constitutional Denies fever(s), Denies weakness <DelmyPrincess 08/15/18 17:46> - Eyes Denies blurry vision, Denies double vision <DelmyPrincess 08/15/18 17:46> - ENT Reports nasal congestion, Denies sore throat <DelmyPrincess 08/15/18 17:46> - *Cardiovascular Reports rapid, pounding, or irregular heartbeat, Denies chest pain <Princess Brock 08/15/18 17:46> - *Respiratory Denies cough, Denies shortness of breath <Pako Brocka 08/15/18 17:46> - *Gastrointestinal Denies abdominal pain, Denies loose stools, Denies nausea, Denies vomiting <Princess Brock 08/15/18 17:46> - *Genitourinary Denies difficulty urinating, Denies painful urination <Princess Brock - 17:46> - *Musculoskeletal Denies joint pain <Princess Brock - 08/15/18 17:46> - *Neurologic Denies headache(s), Denies numbness, Denies seizure-like activity, Denies dizziness <Princess Brock - 08/15/18 17:46> Meds Home Medications Medication Instructions Recorded Confirmed Type Atorvastatin Calcium [Atorvastatin 40 mg PO HS 04/01/18 08/15/18 History 40mg Tab] Hydrocodone/Acetaminophen 1 each PO QIDP PRN 04/01/18 08/15/18 History [Hydrocodone-Acetamin 7.5-325] Tolterodine Tartrate [Detrol LA] 2 mg PO DAILY 04/01/18 08/15/18 History Apixaban [Eliquis 2.5mg tab] 2.5 mg PO BID 05/20/18 08/15/18 History Multivitamin [One Daily] 1 each PO DAILY 05/20/18 08/15/18 History Omeprazole [Omeprazole 20mg 20 mg PO DAILY 05/20/18 08/15/18 History Capsule] Sertraline HCl [Zoloft] 50 mg PO DAILY 05/20/18 08/15/18 History diltiazem 30 mg tablet 30 mg PO TID tab 05/30/18 08/15/18 History Levothyroxine Sodium 112 mcg PO DAILY 08/15/18 08/15/18 History [Levothyroxine 112mcg (0.112mg) Tab] <Tye Loomis - 08/15/18 18:15> Allergies Allergy/AdvReac Type Severity Reaction Status Date / Time sulfamethoxazole Allergy Intermediate I-RASH Verified 05/30/18 14:02 [SULFAMETHOXAZOLE] dolasetron [DOLASETRON] Allergy Unknown HIGH BP Verified 05/30/18 14:02 trimethoprim [TRIMETHOPRIM] Allergy Unknown I-RASH Verified 05/30/18 14:02 <Tye Loomis - 08/15/18 18:15> Exam Vital signs and Labs for Last 24 Hours: Temp Pulse Resp BP Pulse Ox 98.0 F 92 H 19 139/91 H 99 08/15/18 16:10 08/15/18 18:00 08/15/18 18:00 08/15/18 18:00 08/15/18 18:00 Laboratory Results - last 24 hr 08/15/18 13:38: WBC 5.1, RBC 4.55, Hgb 14.1, Hct 41.7, MCV 91.6, MCH 31.1, MCHC 33.9, RDW 13.2, Plt Count 238, MPV 7.6, Neut % (Auto) 66.9, Lymph % (Auto) 24.6, [place] % (Auto) 6.3, Eos % (Auto) 1.4, Baso % (Auto) 0.8, Neut # (Auto) 3.4, Lymph # (Auto) 1.3, [place] # (Auto) 0.3, Eos # (Auto) 0.1, Baso # (Auto) 0.0 08/15/18 13:38: Magnesium 1.9, Troponin I < 0.02 08/15/18 13:38: Sodium 139, Potassium 3.4 L, Chloride 104, Carbon Dioxide 26, Anion Gap 12.4, BUN 12, Creatinine 0.77, Estimated Creat Clear 38, Estimated GFR 71, Est GFR ( Amer) 86, Glucose 159 H, Calcium 9.3, Total Bilirubin 0.6, AST 23, ALT 25, Alkaline Phosphatase 90, Total Protein 7.2, Albumin 3.6, Globulin 3.6 H, Albumin/Globulin Ratio 1.0 L <Tye Loomis - 08/15/18 18:15> Temp Pulse Resp BP Pulse Ox 98.0 F 82 18 120/65 100 08/15/18 16:10 08/15/18 16:10 08/15/18 16:10 08/15/18 16:10 08/15/18 16:10 Laboratory Results - last 24 hr 08/15/18 13:38: WBC 5.1, RBC 4.55, Hgb 14.1, Hct 41.7, MCV 91.6, MCH 31.1, MCHC 33.9, RDW 13.2, Plt Count 238, MPV 7.6, Neut % (Auto) 66.9, Lymph % (Auto) 24.6, [place] % (Auto) 6.3, Eos % (Auto) 1.4, Baso % (Auto) 0.8, Neut # (Auto) 3.4, Lymph # (Auto) 1.3, [place] # (Auto) 0.3, Eos # (Auto) 0.1, Baso # (Auto) 0.0 08/15/18 13:38: Magnesium 1.9, Troponin I < 0.02 08/15/18 13:38: Sodium 139, Potassium 3.4 L, Chloride 104, Carbon Dioxide 26, Anion Gap 12.4, BUN 12, Creatinine 0.77, Estimated Creat Clear 38, Estimated GFR 71, Est GFR ( Amer) 86, Glucose 159 H, Calcium 9.3, Total Bilirubin 0.6, AST 23, ALT 25, Alkaline Phosphatase 90, Total Protein 7.2, Albumin 3.6, Globulin 3.6 H, Albumin/Globulin Ratio 1.0 L <Princess Brock 08/15/18 17:46> I & O for Last 24 hours: Intake & Output 08/13/18 08/14/18 08/15/18 08/16/18 11:59 11:59 11:59 11:59 Intake Total 1000 / 1000 Balance 1000 / 1000 Weight 137 lb 8 oz <Tye Loomis - 08/15/18 18:15> Intake & Output 08/13/18 08/14/18 08/15/18 08/16/18 11:59 11:59 11:59 11:59 Intake Total 1000 / 1000 Balance 1000 / 1000 Weight 137 lb 8 oz <Princess Brock 08/15/18 17:46> - Constitutional no acute distress <Princess Brock 08/15/18 17:46> - *Routine HEENT Exam Head: Present: normocephalic <Princess Brock 08/15/18 17:46> Eye: Present: EOMI, PERRL <Princess Brock 08/15/18 17:46> ENT: Present: mucous membranes moist <Princess Brock 08/15/18 17:46> - *Routine Neck Exam Present: supple. Absent: lymphadenopathy <Princess Brock 08/15/18 17:46> - *Routine Respiratory Exam Present: CTA bilaterally <Princess Brock 08/15/18 17:46> - *Routine Cardiovascular Exam Present: irregularly irregular (controlled rate in the 80's) <Princess Brock 08/15/18 17:46> - *Routine Abdominal Exam Present: soft, normoactive bowel sounds. Absent: tenderness <Princess Brock 08/15/18 17:46> - *Routine Extremities Exam Absent: cyanosis, clubbing, edema <Princess Brock 08/15/18 17:46> - *Routine Skin Exam Present: warm. Absent: rash <Princess Brock 08/15/18 17:46> - *Routine Neurological Exam Present: alert, oriented X3 <Princess Brock 08/15/18 17:46> H&P: Result - Impressions CXR - nothing acute <Princess Brock 08/15/18 17:46> Assessment and Plan (1) Atrial fibrillation with rapid ventricular response Current visit: Yes Status: Acute Category: Medical Code(s): I48.91 - Unspecified atrial fibrillation (2) Esophageal reflux Current visit: No Status: Chronic Category: Medical Code(s): K21.9 - Gastro-esophageal reflux disease without esophagitis (3) History of breast cancer Current visit: No Status: Chronic Category: Medical Code(s): Z85.3 - Personal history of malignant neoplasm of breast (4) Hypothyroidism Current visit: No Status: Chronic Category: Medical Code(s): E03.9 - Hypothyroidism, unspecified (5) Paroxysmal atrial fibrillation Current visit: No Status: Chronic Category: Medical Code(s): I48.0 - Paroxysmal atrial fibrillation <Princess Brock 08/15/18 17:40> (1) Atrial fibrillation with rapid ventricular response Current visit: Yes Status: Acute Category: Medical Code(s): I48.91 - Unspecified atrial fibrillation (2) Esophageal reflux Current visit: No Status: Chronic Category: Medical Code(s): K21.9 - Gastro-esophageal reflux disease without esophagitis (3) History of breast cancer Current visit: No Status: Chronic Category: Medical Code(s): Z85.3 - Personal history of malignant neoplasm of breast (4) Hypothyroidism Current visit: No Status: Chronic Category: Medical Code(s): E03.9 - Hypothyroidism, unspecified (5) Paroxysmal atrial fibrillation Current visit: No Status: Chronic Category: Medical Code(s): I48.0 - Paroxysmal atrial fibrillation <Tye Loomis - 08/15/18 18:15> - Assessment and plan all Dx Assessment and Plan for all problems:: Patient seen and examined. Concur with assessment and plan. <Tye Loomis - 08/15/18 18:15> Patient's rate is controlled on the Cardizem drip. We will keep her on the drip at this time and cardiology has been consulted. Of note, patient's civil clerk did say that if this continued to happen, he may place a pacemaker. <Princess Brock - 08/15/18 17:46>
[2018-08-16 06:17] LABS: Basophils % 0.9 % (0.1-2.0); Eosinophils # 0.1 K/mm3 (0.0-0.4); Eosinophils % 1.7 % (0.1-12.0); Hematocrit 37.8 % (37.0-47.0); Hemoglobin 12.8 g/dL (12.2-16.2); Lymphocytes # 1.4 K/mm3 (0.7-4.5); Mean Corpuscular Hemoglobin 31.3 pg (27.0-31.2); Mean Corpuscular Volume 92.1 fl (81-99); Mean Platelet Volume 7.9 fl (7.4-10.4); Monocytes # 0.4 K/mm3 (0.1-1.0); Monocytes % 8.8 % (1.7-9.3); Neutrophils # 2.8 K/mm3 (1.8-7.8); Neutrophils % 58.6 % (37.0-80.0); Platelet Count 196 K/mm3 (142-424); Red Cell Distribution Width 13.3 % (11.5-17.5); White Blood Count 4.8 K/mm3 (4.8-10.8)
[2018-08-16 06:21] LABS: Anion Gap 9.6 mEq/L (5-15); Calcium 8.6 mg/dL (8.5-10.1); Potassium 3.6 mmoL/L (3.5-5.1)
--- NOTE | 2018-08-16 08:12 | Consult Report ---
History of Present Illness Consult date: 08/16/18 Requesting physician: Tye Loomis Consult reason: atrial fibrillation Chief complaint: Jitteriness, Fatigue Additional Medical History:: 1. History of atrial fibrillation, chronic A. Chronic anticoagulation with Eliquis therapy B. History of amiodarone therapy in the past 2. Hypertension A. Echo, 05/2018,1. Moderately enlarged left atrium, normal left ventricular size, mild concentric left ventricular hypertrophy, visually estimated ejection fraction of 55% with no regional wall motion abnormality. Diastolic parameters are inconclusive 2. Mildly enlarged right ventricle are normal contractility. 3. Moderate aortic, mild mitral and moderate tricuspid regurgitation 4. No significant pericardial effusion noted 3. Carotid artery stenosis, 20-49% bilaterally, 02/2018 4. Remote tobacco use 5. First-degree AV block by EKG 05/2018 6. History of breast cancer 7. History of pulmonary embolus after knee surgery 8. Hyperlipidemia History of present illness: Ms. Dyer is an 87-year-old female with a history of atrial fibrillation, GERD, breast cancer, history of PE after knee replacement, hypothyroidism, hyperlipidemia, and mild cognitive impairment who has been feeling poorly for the past few days. She states she has felt jittery for a few days. She decided this morning to go [place] the post office. When she got there she states she started feeling a fluttering type sensation in her chest and began to feel worse, therefore she presented to the emergency room for further evaluation. She denies any chest pain. In the ER she was found to be in atrial fibrillation with rapid ventricular response. She was started on a Cardizem drip and her heart rate has decreased significantly. She is feeling better at this time. She states that she is followed by Dr. Mireles in [place] (cardiology). The above per Princess Brock PA-C for Dr. Loomis. Patient was seen as a new patient in May of this year by Dr. Anders for history of chronic atrial fibrillation on anticoagulant therapy. Patient was stable and no changes were made at that time. Consideration for a watchman device was recommended if the patient had recurrent falls or bleeding issues. There is been no follow-up since then. Patient relates a recent conversation with Dr. Mireles that she may need a pacemaker. Telemetry this admission does not show any significant bradycardia on the IV Cardizem. Heart rate has been well controlled after Cardizem bolus and maintenance drip started yesterday in the ER. Patient does have difficulty in finding words at times. [facility] History Medical History: Reports:: Arrhythmia, Atrial Fibrillation, Cancer, Depression, Gastroesophageal Reflux Disease(GERD), Hyperlipidemia, Hypertension, Palpitations, Pulmonary Embolism Denies:: Diabetes Mellitus Type 1, Diabetes Mellitus Type 2, Internal Pacemaker, Lung Disease, MRSA, Seizures *Have you ever received a pneumonia vaccine?: Yes *Have you received a flu vaccine this season?: Yes Other Medical History: Reports: Chemotherapy, Glaucoma, Hypothyroidism Laterality Cases: Left: Breast Biopsy, Lumpectomy, Right: Arthroscopy Shoulder, Bilateral: Total Knee Replacement Other Surgeries: Yes: Cholecystectomy, Dilation and Curettage, EGD, Other. No: Pacemaker Amputation: No - *Social History Educational Level: Completed College Smoking Status: Never smoker Alcohol Intake: never Alcohol Intake Frequency:: a few times a month Substance Use Type: denies use *Occupational Status:: retired, disabled Housing: house Household Members: none *Travel in the last 8 weeks: None - Psychiatric History Expresses thoughts of harming self/others: None Suicide Plan Description: No Plan Pschychiatric History:: Reports:: Depression Family Hx:: Cancer, Hyperlipidemia, Thyroid Disorder Meds Home Medications Medication Instructions Recorded Confirmed Type Atorvastatin Calcium [Atorvastatin 40 mg PO HS 04/01/18 08/15/18 History 40mg Tab] Hydrocodone/Acetaminophen 1 each PO QIDP PRN 04/01/18 08/15/18 History [Hydrocodone-Acetamin 7.5-325] Tolterodine Tartrate [Detrol LA] 2 mg PO DAILY 04/01/18 08/15/18 History Apixaban [Eliquis 2.5mg tab] 2.5 mg PO BID 05/20/18 08/15/18 History Multivitamin [One Daily] 1 each PO DAILY 05/20/18 08/15/18 History Omeprazole [Omeprazole 20mg 20 mg PO DAILY 05/20/18 08/15/18 History Capsule] Sertraline HCl [Zoloft] 50 mg PO DAILY 05/20/18 08/15/18 History diltiazem 30 mg tablet 30 mg PO TID tab 05/30/18 08/15/18 History Brimonidine Tartrate 1 drp OP TID 08/15/18 08/15/18 History Dorzolamide HCl 1 drp OP TID 08/15/18 08/15/18 History Levothyroxine Sodium 112 mcg PO DAILY 08/15/18 08/15/18 History [Levothyroxine 112mcg (0.112mg) Tab] Allergies Allergy/AdvReac Type Severity Reaction Status Date / Time sulfamethoxazole Allergy Intermediate I-RASH Verified 05/30/18 14:02 [SULFAMETHOXAZOLE] dolasetron [DOLASETRON] Allergy Unknown HIGH BP Verified 05/30/18 14:02 trimethoprim [TRIMETHOPRIM] Allergy Unknown I-RASH Verified 05/30/18 14:02 Review of Systems - *Cardiovascular Reports rapid, pounding, or irregular heartbeat, Reports fast heart rate, Denies chest pain - *Respiratory Denies cough, Denies shortness of breath - *Gastrointestinal Denies abdominal pain, Denies belching, Denies vomiting - *Genitourinary Denies blood in urine - *Musculoskeletal Denies joint pain, Denies back pain - *Neurologic Denies headache(s), Denies numbness, Denies seizure-like activity, Denies dizziness, Denies weakness Exam Vital signs and Labs for Last 24 Hours: Temp Pulse Resp BP Pulse Ox 97.1 F L 64 18 107/55 L 95 08/15/18 20:00 08/16/18 04:00 08/16/18 04:00 08/16/18 04:00 08/16/18 04:00 Laboratory Results - last 24 hr 08/15/18 13:38: WBC 5.1, RBC 4.55, Hgb 14.1, Hct 41.7, MCV 91.6, MCH 31.1, MCHC 33.9, RDW 13.2, Plt Count 238, MPV 7.6, Neut % (Auto) 66.9, Lymph % (Auto) 24.6, [place] % (Auto) 6.3, Eos % (Auto) 1.4, Baso % (Auto) 0.8, Neut # (Auto) 3.4, Lymph # (Auto) 1.3, [place] # (Auto) 0.3, Eos # (Auto) 0.1, Baso # (Auto) 0.0 08/15/18 13:38: Magnesium 1.9, Troponin I < 0.02 05/30/19 13:38: Sodium 139, Potassium 3.4 L, Chloride 104, Carbon Dioxide 26, Anion Gap 12.4, BUN 12, Creatinine 0.77, Estimated Creat Clear 38, Estimated GFR 71, Est GFR ( Amer) 86, Glucose 159 H, Calcium 9.3, Total Bilirubin 0.6, AST 23, ALT 25, Alkaline Phosphatase 90, Total Protein 7.2, Albumin 3.6, Globulin 3.6 H, Albumin/Globulin Ratio 1.0 L 08/15/18 18:49: Troponin I < 0.02 08/15/18 22:00: Troponin I < 0.02 08/16/18 05:37: WBC 4.8, RBC 4.10 L, Hgb 12.8, Hct 37.8, MCV 92.1, MCH 31.3 H, MCHC 34.0, RDW 13.3, Plt Count 196, MPV 7.9, Neut % (Auto) 58.6, Lymph % (Auto) 30.0, [place] % (Auto) 8.8, Eos % (Auto) 1.7, Baso % (Auto) 0.9, Neut # (Auto) 2.8, Lymph # (Auto) 1.4, [place] # (Auto) 0.4, Eos # (Auto) 0.1, Baso # (Auto) 0.0 08/16/18 05:37: Sodium 140, Potassium 3.6, Chloride 107, Carbon Dioxide 27, Anion Gap 9.6, BUN 9, Creatinine 0.66, Estimated Creat Clear 40, Estimated GFR 85, Est GFR ( Amer) 103, Glucose 99 D, Calcium 8.6 I & O for Last 24 hours: Intake & Output 08/13/18 08/14/18 08/15/18 08/16/18 11:59 11:59 11:59 11:59 Intake Total 177 / 177 Balance 177 / 177 Weight 136 lb 9 oz - *Routine HEENT Exam Head: Present: normocephalic Eye: Present: EOMI, PERRL ENT: Present: mucous membranes moist - *Routine Respiratory Exam Present: CTA bilaterally. Absent: accessory muscle use, rales, rhonchi, wheezes - *Routine Cardiovascular Exam Present: RRR, murmur, irregularly irregular. Absent: gallop, rubs - *Routine Extremities Exam Absent: edema, calf tenderness - *Routine Neurological Exam Present: alert, oriented X3, moving all extremities Assessment and Plan (1) Atrial fibrillation with rapid ventricular response Current visit: Yes Status: Acute Category: Medical Code(s): I48.91 - Unspecified atrial fibrillation (2) Esophageal reflux Current visit: No Status: Chronic Category: Medical Code(s): K21.9 - Gastro-esophageal reflux disease without esophagitis (3) History of breast cancer Current visit: No Status: Chronic Category: Medical Code(s): Z85.3 - Personal history of malignant neoplasm of breast (4) Hypothyroidism Current visit: No Status: Chronic Category: Medical Code(s): E03.9 - Hypothyroidism, unspecified (5) Paroxysmal atrial fibrillation Current visit: No Status: Chronic Category: Medical Code(s): I48.0 - Paroxysmal atrial fibrillation - Assessment and plan all Dx Assessment and Plan for all problems:: 1. Recommend starting Cardizem CD 120 mg daily and discontinue IV Cardizem drip. Continue to monitor for significant bradycardia and possible need for pacemaker. Patient could be discharged home later today with an outpatient monitor and early follow-up. 2. Continue Eliquis therapy 2.5 mg twice daily based on the patient's weight and age.
--- NOTE | 2018-08-16 08:39 | Progress Note ---
<Princess Brock - Last Filed: 08/16/18 08:37> Internal Medicine - PN: Subj *Date: 08/16/18 *Time: 08:37 Interval history: Patient states she is feeling well this morning. She is still a bit confused. She states she slept well and is eating her breakfast this morning. She is still in atrial fib but her rate is controlled in the 70s and 80s. Exam Vital signs and Labs for Last 24 Hours: Temp Pulse Resp BP Pulse Ox 97.1 F L 64 18 107/55 L 95 08/15/18 20:00 08/16/18 04:00 08/16/18 04:00 08/16/18 04:00 08/16/18 04:00 Laboratory Results - last 24 hr 08/15/18 13:38: WBC 5.1, RBC 4.55, Hgb 14.1, Hct 41.7, MCV 91.6, MCH 31.1, MCHC 33.9, RDW 13.2, Plt Count 238, MPV 7.6, Neut % (Auto) 66.9, Lymph % (Auto) 24.6, [place] % (Auto) 6.3, Eos % (Auto) 1.4, Baso % (Auto) 0.8, Neut # (Auto) 3.4, Lymph # (Auto) 1.3, [place] # (Auto) 0.3, Eos # (Auto) 0.1, Baso # (Auto) 0.0 08/15/18 13:38: Magnesium 1.9, Troponin I < 0.02 08/15/18 13:38: Sodium 139, Potassium 3.4 L, Chloride 104, Carbon Dioxide 26, Anion Gap 12.4, BUN 12, Creatinine 0.77, Estimated Creat Clear 38, Estimated GFR 71, Est GFR ( Amer) 86, Glucose 159 H, Calcium 9.3, Total Bilirubin 0.6, AST 23, ALT 25, Alkaline Phosphatase 90, Total Protein 7.2, Albumin 3.6, Globulin 3.6 H, Albumin/Globulin Ratio 1.0 L 08/15/18 18:49: Troponin I < 0.02 08/15/18 22:00: Troponin I < 0.02 08/16/18 05:37: WBC 4.8, RBC 4.10 L, Hgb 12.8, Hct 37.8, MCV 92.1, MCH 31.3 H, MCHC 34.0, RDW 13.3, Plt Count 196, MPV 7.9, Neut % (Auto) 58.6, Lymph % (Auto) 30.0, [place] % (Auto) 8.8, Eos % (Auto) 1.7, Baso % (Auto) 0.9, Neut # (Auto) 2.8, Lymph # (Auto) 1.4, [place] # (Auto) 0.4, Eos # (Auto) 0.1, Baso # (Auto) 0.0 08/16/18 05:37: Sodium 140, Potassium 3.6, Chloride 107, Carbon Dioxide 27, Anion Gap 9.6, BUN 9, Creatinine 0.66, Estimated Creat Clear 40, Estimated GFR 85, Est GFR ( Amer) 103, Glucose 99 D, Calcium 8.6 I & O for Last 24 hours: Intake & Output 08/13/18 08/14/18 08/15/18 08/16/18 11:59 11:59 11:59 11:59 Intake Total 1773 / 1773 Balance 177 / 177 Weight 136 lb 9 oz - Constitutional no acute distress - *Routine Respiratory Exam Present: CTA bilaterally - *Routine Cardiovascular Exam Present: irregularly irregular - *Routine Abdominal Exam Present: soft, normoactive bowel sounds. Absent: tenderness - *Routine Extremities Exam Absent: cyanosis, clubbing, edema Assessment and Plan (1) Atrial fibrillation with rapid ventricular response Current visit: Yes Status: Acute Category: Medical Code(s): I48.91 - Unspecified atrial fibrillation (2) Esophageal reflux Current visit: No Status: Chronic Category: Medical Code(s): K21.9 - Gastro-esophageal reflux disease without esophagitis (3) History of breast cancer Current visit: No Status: Chronic Category: Medical Code(s): Z85.3 - Personal history of malignant neoplasm of breast (4) Hypothyroidism Current visit: No Status: Chronic Category: Medical Code(s): E03.9 - Hypothyroidism, unspecified (5) Paroxysmal atrial fibrillation Current visit: No Status: Chronic Category: Medical Code(s): I48.0 - Paroxysmal atrial fibrillation - Assessment and plan all Dx Assessment and Plan for all problems:: Cardiology has seen the patient. We will discontinue the Cardizem drip and start on oral Cardizem. If she tolerates this well she may be able to be discharged today. <EbonieTye Tawanda - Last Filed: 08/16/18 08:47> Internal Medicine - PN: Subj *Date: 08/16/18 *Time: 08:41 Exam Vital signs and Labs for Last 24 Hours: Temp Pulse Resp BP Pulse Ox 97.1 F L 64 18 107/55 L 95 08/15/18 20:00 08/16/18 04:00 08/16/18 04:00 08/16/18 04:00 08/16/18 04:00 Laboratory Results - last 24 hr 08/15/18 13:38: WBC 5.1, RBC 4.55, Hgb 14.1, Hct 41.7, MCV 91.6, MCH 31.1, MCHC 33.9, RDW 13.2, Plt Count 238, MPV 7.6, Neut % (Auto) 66.9, Lymph % (Auto) 24.6, [place] % (Auto) 6.3, Eos % (Auto) 1.4, Baso % (Auto) 0.8, Neut # (Auto) 3.4, Lymph # (Auto) 1.3, [place] # (Auto) 0.3, Eos # (Auto) 0.1, Baso # (Auto) 0.0 08/15/18 13:38: Magnesium 1.9, Troponin I < 0.02 08/15/18 13:38: Sodium 139, Potassium 3.4 L, Chloride 104, Carbon Dioxide 26, Anion Gap 12.4, BUN 12, Creatinine 0.77, Estimated Creat Clear 38, Estimated GFR 71, Est GFR ( Amer) 86, Glucose 159 H, Calcium 9.3, Total Bilirubin 0.6, AST 23, ALT 25, Alkaline Phosphatase 90, Total Protein 7.2, Albumin 3.6, Globulin 3.6 H, Albumin/Globulin Ratio 1.0 L 08/15/18 18:49: Troponin I < 0.02 08/15/18 22:00: Troponin I < 0.02 08/16/18 05:37: WBC 4.8, RBC 4.10 L, Hgb 12.8, Hct 37.8, MCV 92.1, MCH 31.3 H, MCHC 34.0, RDW 13.3, Plt Count 196, MPV 7.9, Neut % (Auto) 58.6, Lymph % (Auto) 30.0, [place] % (Auto) 8.8, Eos % (Auto) 1.7, Baso % (Auto) 0.9, Neut # (Auto) 2.8, Lymph # (Auto) 1.4, [place] # (Auto) 0.4, Eos # (Auto) 0.1, Baso # (Auto) 0.0 08/16/18 05:37: Sodium 140, Potassium 3.6, Chloride 107, Carbon Dioxide 27, Anion Gap 9.6, BUN 9, Creatinine 0.66, Estimated Creat Clear 40, Estimated GFR 85, Est GFR ( Amer) 103, Glucose 99 D, Calcium 8.6 I & O for Last 24 hours: Intake & Output 08/13/18 08/14/18 08/15/18 08/16/18 11:59 11:59 11:59 11:59 Intake Total 1773 / 1773 Balance 1773 / 1773 Weight 136 lb 9 oz Assessment and Plan (1) Atrial fibrillation with rapid ventricular response Current visit: Yes Status: Acute Category: Medical Code(s): I48.91 - Unspecified atrial fibrillation (2) Esophageal reflux Current visit: No Status: Chronic Category: Medical Code(s): K21.9 - Gastro-esophageal reflux disease without esophagitis (3) History of breast cancer Current visit: No Status: Chronic Category: Medical Code(s): Z85.3 - Personal history of malignant neoplasm of breast (4) Hypothyroidism Current visit: No Status: Chronic Category: Medical Code(s): E03.9 - Hypothyroidism, unspecified (5) Paroxysmal atrial fibrillation Current visit: No Status: Chronic Category: Medical Code(s): I48.0 - Paroxysmal atrial fibrillation - Assessment and plan all Dx Assessment and Plan for all problems:: Patient seen and examined. She is alert feels OK. She states she feels a quivering in her chest. SHe seems to be having a bit more word finding problems this morning. She remains on Eliquis. Her monitor is showing controlled AF. Will proceed with cardiology recommendations to switch to oral Cardizem. Will reassess patient later today and possibly discharge if stable. She states her daughter is planning to speak with Dr. Mireles's office this morning to arrange follow up.
--- NOTE | 2018-08-16 09:06 | Pharmacy Consult Notes ---
[facility] Pharmacy VTE Monitoring - Patient Demographics Admission date: 08/15/18 Report Date: 08/16/18 Time: 09:06 Allergies/Adverse Reactions: Patient Allergies sulfamethoxazole [SULFAMETHOXAZOLE] Allergy (Intermediate, Verified 05/30/18 14:02) I-RASH dolasetron [DOLASETRON] Allergy (Unknown, Verified 05/30/18 14:02) HIGH BP trimethoprim [TRIMETHOPRIM] Allergy (Unknown, Verified 05/30/18 14:02) I-RASH Height: 1.63 m Weight: 61.944 kg Patient Problems: Current Active Problems (Updated 08/15/18 @ 14:38 by Lavelle Walter MD) Atrial fibrillation with rapid ventricular response (Acute) - VTE Risk Labs: VTE Related Lab Results Hgb 12.8 g/dL (12.2-16.2) 08/16/18 05:37 Hct 37.8 % (37.0-47.0) 08/16/18 05:37 Plt Count 196 K/mm3 (142-424) 08/16/18 05:37 BUN 9 mg/dL (7-18) 08/16/18 05:37 Creatinine 0.66 mg/dL (0.55-1.02) 08/16/18 05:37 Estimated Creat Clear 40 mL/min (50-200) 08/16/18 05:37 VTE Score: 3 VTE Risk Level: Low Risk - Prophylaxis VTE Prophylaxis Ordered?: Yes Types of VTE Prophylaxis: TEDS Knee High, Pharmacological Location of Applied Device: Bilateral Lower Extremeties Pharmacologic Type: Other (ELIQUIS) - VTE Diagnosis Confirmed Treatment or plan recommended: Continue Current Treatment
--- NOTE | 2018-08-17 17:40 | Discharge Summary ---
General - General Admission date:: 08/15/18 Discharge date: 08/16/18 HPI HPI: Ms. 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 She stated she had felt jittery for a few days. She decided the morning of admission [place]. When she got there she stated she started feeling a fluttering type sensation in her chest and began to feel worse and therefore presented to the emergency room for further evaluation. She denied any chest pain. In the ER she was found to be in atrial fibrillation with rapid ventricular response. She was started on a Cardizem drip and her heart rate decreased significantly and she felt better. She stated that she is followed by Dr. Mireles in [place] (cardiology). Hospital Course Hospital Course: Patient was seen by cardiology after admission with recommendations to discontinue IV Cardizem drip and start p.o. Cardizem CD 120 mg daily; to continue to monitor for significant bradycardia and possible need for pacemaker; and to continue with Eliquis therapy 2.5 mg daily based on the patient's weight and age Troponin I's were negative x3. On 08/16/2018 patient was feeling well. She denies chest pain and shortness of breath. She was oriented to name, date, person and place although she had difficulty with finding some of her words. She remained in atrial fib with a controlled ventricular response in the 70s and 80s. Cardizem drip was discontinued and she was started on p.o. Cardizem and continued to do well. In the p.m. on this day she was felt to be stable to be discharged home with follow-up with Dr. Mireles in in 1 week. She was to continue with p.o. Cardizem and Eliquis. Objective Vital signs: Temp Pulse Resp BP Pulse Ox 98.0 F 54 L 19 124/64 97 08/16/18 12:00 08/16/18 12:00 08/16/18 12:00 08/16/18 12:00 08/16/18 12:00 Narrative: Exam Vital signs and Labs for Last 24 Hours: Temp Pulse Resp BP Pulse Ox 97.1 F L 64 18 107/55 L 95 05/30/19 20:00 08/16/18 04:00 08/16/18 04:00 08/16/18 04:00 08/16/18 04:00 Laboratory Results - last 24 hr 08/15/18 13:38: WBC 5.1, RBC 4.55, Hgb 14.1, Hct 41.7, MCV 91.6, MCH 31.1, MCHC 33.9, RDW 13.2, Plt Count 238, MPV 7.6, Neut % (Auto) 66.9, Lymph % (Auto) 24.6, [place] % (Auto) 6.3, Eos % (Auto) 1.4, Baso % (Auto) 0.8, Neut # (Auto) 3.4, Lymph # (Auto) 1.3, [place] # (Auto) 0.3, Eos # (Auto) 0.1, Baso # (Auto) 0.0 08/15/18 13:38: Magnesium 1.9, Troponin I < 0.02 08/15/18 13:38: Sodium 139, Potassium 3.4 L, Chloride 104, Carbon Dioxide 26, Anion Gap 12.4, BUN 12, Creatinine 0.77, Estimated Creat Clear 38, Estimated GFR 71, Est GFR ( Amer) 86, Glucose 159 H, Calcium 9.3, Total Bilirubin 0.6, AST 23, ALT 25, Alkaline Phosphatase 90, Total Protein 7.2, Albumin 3.6, Globulin 3.6 H, Albumin/Globulin Ratio 1.0 L 08/15/18 18:49: Troponin I < 0.02 08/15/18 22:00: Troponin I < 0.02 08/16/18 05:37: WBC 4.8, RBC 4.10 L, Hgb 12.8, Hct 37.8, MCV 92.1, MCH 31.3 H, MCHC 34.0, RDW 13.3, Plt Count 196, MPV 7.9, Neut % (Auto) 58.6, Lymph % (Auto) 30.0, [place] % (Auto) 8.8, Eos % (Auto) 1.7, Baso % (Auto) 0.9, Neut # (Auto) 2.8, Lymph # (Auto) 1.4, [place] # (Auto) 0.4, Eos # (Auto) 0.1, Baso # (Auto) 0.0 08/16/18 05:37: Sodium 140, Potassium 3.6, Chloride 107, Carbon Dioxide 27, Anion Gap 9.6, BUN 9, Creatinine 0.66, Estimated Creat Clear 40, Estimated GFR 85, Est GFR ( Amer) 103, Glucose 99 D, Calcium 8.6 I & O for Last 24 hours: Intake & Output 08/13/18 08/14/18 08/15/18 08/16/18 11:59 11:59 11:59 11:59 Intake Total 1772 Balance 1772 Weight 136 lb 9 oz - Constitutional no acute distress - *Routine Respiratory Exam Present: CTA bilaterally - *Routine Cardiovascular Exam Present: irregularly irregular - *Routine Abdominal Exam Present: soft, normoactive bowel sounds. Absent: tenderness - *Routine Extremities Exam Absent: cyanosis, clubbing, edema Results Completed studies during hospitalization [Text1]: 08/15/2018 chest x-ray IMPRESSION: Hiatal hernia, no acute finding. Laboratory Tests 08/15/18 08/15/18 08/15/18 13:38 13:38 13:38 WBC 5.1 RBC 4.55 Hgb 14.1 Hct 41.7 MCV 91.6 MCH 31.1 MCHC 33.9 RDW 13.2 Plt Count 238 Sodium 139 Potassium 3.4 L Chloride 104 Carbon Dioxide 26 Anion Gap 12.4 BUN 12 Creatinine 0.77 Glucose 159 H Calcium 9.3 Magnesium 1.9 Total Bilirubin 0.6 AST 23 ALT 25 Alkaline Phosphatase 90 Troponin I < 0.02 Total Protein 7.2 Albumin 3.6 Globulin 3.6 H Albumin/Globulin Ratio 1.0 L 08/15/18 08/15/18 18:49 22:00 WBC RBC Hgb Hct MCV MCH MCHC RDW Plt Count Sodium Potassium Chloride Carbon Dioxide Anion Gap BUN Creatinine Glucose Calcium Magnesium Total Bilirubin AST ALT Alkaline Phosphatase Troponin I < 0.02 < 0.02 Total Protein Albumin Globulin Albumin/Globulin Ratio DS: Diagnosis - Discharge Diagnosis (1) Atrial fibrillation with rapid ventricular response Status: Acute (2) Esophageal reflux Status: Chronic (3) History of breast cancer Status: Chronic (4) Hypothyroidism Status: Chronic (5) Paroxysmal atrial fibrillation Status: Chronic Discharge Plan - Patient Discharge Instructions ACTIVITY: Continue current activity DIET: continue same diet Patient Instructions: DI for Atrial Fibrillation - Follow up Plan Follow up with: Td Mireles [Referring] - 1 week Disposition: Home, Self-Skilled Nursing Medications: Home Medications Medication Instructions Recorded Confirmed Type Atorvastatin Calcium [Atorvastatin 40 mg PO HS 04/01/18 08/15/18 History 40mg Tab] Hydrocodone/Acetaminophen 1 each PO QIDP PRN 04/01/18 08/15/18 History [Hydrocodone-Acetamin 7.5-325] Tolterodine Tartrate [Detrol LA] 2 mg PO DAILY 04/01/18 08/15/18 History Apixaban [Eliquis 2.5mg tab] 2.5 mg PO BID 05/20/18 08/15/18 History Multivitamin [One Daily] 1 each PO DAILY 05/20/18 08/15/18 History Omeprazole [Omeprazole 20mg 20 mg PO DAILY 05/20/18 08/15/18 History Capsule] Sertraline HCl [Zoloft] 50 mg PO DAILY 05/20/18 08/15/18 History Brimonidine Tartrate 1 drp OP TID 08/15/18 08/15/18 History Dorzolamide HCl 1 drp OP TID 08/15/18 08/15/18 History Levothyroxine Sodium 112 mcg PO DAILY 08/15/18 08/15/18 History [Levothyroxine 112mcg (0.112mg) Tab] dilTIAZem HCl [Cartia Xt] 120 mg PO DAILY 08/16/18 08/16/18 History Prescriptions/Medication Reconciliation: Continued Tolterodine Tartrate [Detrol LA] 2 mg PO DAILY Hydrocodone/Acetaminophen [Hydrocodone-Acetamin 7.5-325] 1 each PO QIDP PRN PRN Reason: PAIN Sertraline HCl [Zoloft] 50 mg PO DAILY Apixaban [Eliquis 2.5mg tab] 2.5 mg PO BID Omeprazole [Omeprazole 20mg Capsule] 20 mg PO DAILY Multivitamin [One Daily] 1 each PO DAILY Levothyroxine Sodium [Levothyroxine 112mcg (0.112mg) Tab] 112 mcg PO DAILY dilTIAZem HCl [Cartia Xt] 120 mg PO DAILY Atorvastatin Calcium [Atorvastatin 40mg Tab] 40 mg PO HS Brimonidine Tartrate 1 drp OP TID Dorzolamide HCl 1 drp OP TID
== END 2018-08-16 13:43 | disposition home or self-care (01) ==
LOC: ER 13:23 → INTOOBSV 14:40 → 2ND 14:40
PROVIDERS: ADMIT Family Medicine; ATTEND Family Medicine
CPT/HCPCS: 36415; 71010; 71045; 80048; 80053; 83735; 84484; 85025; 93005; 96365; 96367; 96375; 99284; G0378